=== PATIENT | female | born 1970 | race Caucasian/White ===

== ENCOUNTER 2021-05-22 12:35 | Emergency (ER) | payer SELFPAY ==
[~2021-05-22] VITALS: Ht 170 cm; Wt 72.5 kg
--- NOTE | 2021-05-22 13:18 | ED Headache ---
General Stated Complaint: COUGH/DIZZINESS/HEADACHE Source: patient Exam Limitations: no limitations History of Present Illness Date Seen by Provider: May 22, 2021 Time Seen by Provider: 12:55 Initial Comments Patient is a 51-year-old female who presents to the emergency department today with a chief complaint of headache, onset about 2 weeks ago. She complains of intermittent dizzy spells, some cough and a little shortness of breath. Patient is not Covid vaccinated. Patient has been taking her blood pressure at home and states the highest she has measured is 130 systolic. She states that she takes [id number] "natural vitamins" for blood pressure. She discontinued prescription BP meds several years ago when she lost her insurance. She does smoke cigarettes. She denies chest pain. She denies Covid contacts. Timing/Duration: 1 week, increasing Severity/Quality: moderate Location: frontal Prior Headaches/Recent Trauma: occasional headaches Associated Symptoms: denies symptoms Allergies and Home Medications Allergies Coded Allergies: piperacillin (Verified Allergy, Unknown, 05/22/21) tazobactam (Verified Allergy, Unknown, 05/22/21) Home Medications Lisinopril 10 Mg Tablet, 10 MG PO DAILY Prescribed by: MART RM on 05/22/21 1450 Patient Home Medication List Home Medication List Reviewed: Yes Review of Systems Review of Systems Constitutional: see HPI Respiratory: cough, short of breath (chronic) Cardiovascular: no symptoms reported Gastrointestinal: loss of appetite, nausea Genitourinary: no symptoms reported Skin: no symptoms reported Psychiatric/Neurological: Headache, Other (dizziness) All Other Systems Reviewed Negative Unless Noted: Yes Physical Exam Vital Signs Vital Signs - First Documented 05/22/21 12:57 Temp 36.7 Pulse 122 Resp 18 B/P (MAP) 202/132 (155) Pulse Ox 97 O2 Delivery Room Air Capillary Refill : Height, Weight, BMI Height: '" Weight: lbs. oz. kg; BMI Method: General Appearance: WD/WN, no apparent distress HEENT: PERRL/EOMI, normal ENT inspection, pharynx normal Neck: full range of motion Cardiovascular: regular rate, rhythm Respiratory: lungs clear, normal breath sounds, no respiratory distress, no accessory muscle use Gastrointestinal: non tender, soft Extremities: normal range of motion, non-tender, normal inspection, no pedal edema, no calf tenderness Psychiatric: alert, oriented x 3 Crainal Nerves: normal hearing, normal speech, PERRL Coordination/Gait: normal gait Motor/Sensory: no motor deficit, no sensory deficit Skin: normal color, warm/dry Progress/Results/Core Measures Results/Orders Lab Results Laboratory Tests Test 05/22/21 13:10 Range/Units White Blood Count 8.6 4.3-11.0 10^3/uL Red Blood Count 4.14 3.80-5.11 10^6/uL Hemoglobin 14.8 11.5-16.0 g/dL Hematocrit 42 35-52 % Mean Corpuscular Volume 102 H 80-99 fL Mean Corpuscular Hemoglobin 36 H 25-34 pg Mean Corpuscular Hemoglobin Concent 35 32-36 g/dL Red Cell Distribution Width 13.6 10.0-14.5 % Platelet Count 167 130-400 10^3/uL Mean Platelet Volume 11.1 9.0-12.2 fL Immature Granulocyte % (Auto) 0 % Neutrophils (%) (Auto) 50 42-75 % Lymphocytes (%) (Auto) 37 12-44 % Monocytes (%) (Auto) 8 0-12 % Eosinophils (%) (Auto) 3 0-10 % Basophils (%) (Auto) 1 0-10 % Neutrophils # (Auto) 4.3 1.8-7.8 10^3/uL Lymphocytes # (Auto) 3.2 1.0-4.0 10^3/uL Monocytes # (Auto) 0.7 0.0-1.0 10^3/uL Eosinophils # (Auto) 0.3 0.0-0.3 10^3/uL Basophils # (Auto) 0.1 0.0-0.1 10^3/uL Immature Granulocyte # (Auto) 0.0 0.0-0.1 10^3/uL Sodium Level 136 135-145 MMOL/L Potassium Level 3.7 3.6-5.0 MMOL/L Chloride Level 104 98-107 MMOL/L Carbon Dioxide Level 23 21-32 MMOL/L Anion Gap 9 5-14 MMOL/L Blood Urea Nitrogen 12 7-18 MG/DL Creatinine 0.79 0.60-1.30 MG/DL Estimat Glomerular Filtration Rate 77 BUN/Creatinine Ratio 15 Glucose Level 116 H 70-105 MG/DL Calcium Level 8.8 8.5-10.1 MG/DL SARS-CoV-2 RNA (RT-PCR) Not Detected Not Detecte My Orders Orders - MART RM MD Ed Iv/Invasive Line Start (05/22/21 13:12) Cbc With Automated Diff (05/22/21 13:12) Basic Metabolic Panel (05/22/21 13:12) Ekg Tracing (05/22/21 13:12) Chest 1 View, Ap/Pa Only (05/22/21 13:12) Ct Head Wo (05/22/21 13:12) Covid 19 Inhouse Test (05/22/21 13:18) Vital Signs/I&O 05/22/21 05/22/21 12:57 15:09 Temp 36.7 36.7 Pulse 122 76 Resp 18 16 B/P (MAP) 202/132 (155) 124/89 (155) Pulse Ox 97 94 O2 Delivery Room Air Room Air Progress Progress Note : Time: 14:50 Progress Note Reevaluated patient, systolic blood pressure is down to 130. Patient is comfortable and in no acute distress. No headache currently. Work-up has been reviewed and is unremarkable. CT brain is negative for any intracranial pathology. Covid test is negative. Renal function is normal. Patient states that about 8 years ago when she was diagnosed with hypertension she was on lisinopril and clonidine. She states before she quit going to doctor she was on 40 mg daily. I advised the patient today we will start her back on 10 mg at a low dose and have her follow-up with [facility]. She is comfortable with this plan of care. All questions have been sought and answere d. Patient is stable for discharge. Initial ECG Impression Date: May 22, 2021 Initial ECG Impression Time: 13:20 Initial ECG Rate: 85 Initial ECG Rhythm: Normal Sinus Initial ECG Intervals: Normal Initial ECG Impression: Normal Diagnostic Imaging Diagonstic Imaging: Xray, CT Plain Films/CT/US/NM/MRI: chest, head Comments [facility] [place] NAME: [facility] REC#: [id number] PT STATUS: REG ER : 1970 PHYSICIAN: MART RM MD ADMIT DATE: 05/22/21/ER Draft Date of Exam:05/22/21 CT HEAD WO PROCEDURE: CT head without contrast. TECHNIQUE: Multiple contiguous axial images were obtained through the brain without the use of intravenous contrast. Auto Exposure Controls were utilized during the CT exam to meet ALARA standards for radiation dose reduction. INDICATION: Headache and elevated blood pressure. No prior studies are available for comparison. Ventricles and sulci are within normal limits. No sulcal effacement or midline shift is identified. No acute intra-axial or extra-axial hemorrhage is detected. There is an area of low density in the left frontal lobe white matter adjacent to frontal horn, perhaps owing to microvascular ischemia. Cisterns are patent. Paranasal sinuses are clear. IMPRESSION: Chronic changes. No acute intracranial process is identified. Dictated on workstation # [id number] Dict: 05/22/21 1417 Trans: 05/22/21 142 CVB [id number] Interpreted by: KENDRICK JOHNSTON MD Electronically signed by: [facility] [place] NAME: [facility] REC#: [id number] PT STATUS: REG ER : 1970 PHYSICIAN: MART RM MD ADMIT DATE: 05/22/21/ER Draft Date of Exam:05/22/21 CHEST 1 VIEW, AP/PA ONLY EXAMINATION: Chest 1 view HISTORY: Shortness of breath and cough. COMPARISON: None available. FINDINGS: The lungs are clear without edema or pneumonia. No pleural effusion or pneumothorax. Heart size is normal. IMPRESSION: 1. Clear lungs. Dictated on workstation # [id number] Dict: 05/22/21 141 Trans: 05/22/21 141 CVB [id number] Interpreted by: JOSE LUIS AMARO MD Electronically signed by: Departure Impression Primary Impression: Headache Qualified Codes: R51.9 - Headache, unspecified Disposition: 01 HOME, SELF-CARE Condition: Stable Departure-Patient Inst. Decision time for Depature: 14:49 Referrals: [facility] [place] Patient Instructions: High Blood Pressure ED Scripts Lisinopril (Lisinopril) 10 Mg Tablet 10 MG PO DAILY for 30 Days, #30 TAB Prov: MART RM MD 05/22/21 MART RM MD May 22, 2021 13:17
[2021-05-22 13:22] LABS: BASOPHILS # (AUTO) 0.1 10^3/uL (0.0-0.1); BASOPHILS % (AUTO) 1 % (0-10); EOSINOPHILS # (AUTO) 0.3 10^3/uL (0.0-0.3); EOSINOPHILS % (AUTO) 3 % (0-10); HEMATOCRIT 42 % (35-52); HEMOGLOBIN 14.8 g/dL (11.5-16.0); LYMPHOCYTES # (AUTO) 3.2 10^3/uL (1.0-4.0); LYMPHOCYTES % (AUTO) 37 % (12-44); MEAN CORPUSCULAR HEMOGLOBIN 36 pg (25-34); MEAN CORPUSCULAR HGB CONC 35 g/dL (32-36); MEAN CORPUSCULAR VOLUME 102 fL (80-99); MEAN PLATELET VOLUME 11.1 fL (9.0-12.2); MONOCYTES # (AUTO) 0.7 10^3/uL (0.0-1.0); MONOCYTES % (AUTO) 8 % (0-12); NEUTROPHILS # (AUTO) 4.3 10^3/uL (1.8-7.8); NEUTROPHILS % (AUTO) 50 % (42-75); PLATELET COUNT 167 10^3/uL (130-400); WHITE BLOOD COUNT 8.6 10^3/uL (4.3-11.0)
[2021-05-22 13:36] LABS: CALCIUM 8.8 MG/DL (8.5-10.1); CREATININE SERUM 0.79 MG/DL (0.60-1.30); POTASSIUM 3.7 MMOL/L (3.6-5.0)
--- NOTE | 2021-05-22 14:15 | Diagnostic Imaging Report ---
EXAMINATION: Chest 1 view HISTORY: Shortness of breath and cough. COMPARISON: None available. FINDINGS: The lungs are clear without edema or pneumonia. No pleural effusion or pneumothorax. Heart size is normal. IMPRESSION: 1. Clear lungs. Dictated by: Dictated on workstation # [id number]
--- NOTE | 2021-05-22 14:20 | Diagnostic Imaging Report ---
PROCEDURE: CT head without contrast. TECHNIQUE: Multiple contiguous axial images were obtained through the brain without the use of intravenous contrast. Auto Exposure Controls were utilized during the CT exam to meet ALARA standards for radiation dose reduction. INDICATION: Headache and elevated blood pressure. No prior studies are available for comparison. Ventricles and sulci are within normal limits. No sulcal effacement or midline shift is identified. No acute intra-axial or extra-axial hemorrhage is detected. There is an area of low density in the left frontal lobe white matter adjacent to frontal horn, perhaps owing to microvascular ischemia. Cisterns are patent. Paranasal sinuses are clear. IMPRESSION: Chronic changes. No acute intracranial process is identified. Dictated by: Dictated on workstation # [id number]
[2021-05-22] MEDS ORDERED: LISI10TA25 PO (14:50)
[2021-05-22 15:09] VITALS: BP 124/89
== END 2021-05-22 15:09 | disposition home or self-care (01) ==
LOC: ER 12:40
DX: R51.9 Headache, unspecified (principal); Z20.822 Contact with and (suspected) exposure to COVID-19
CPT/HCPCS: 36415; 70450; 71045; 80048; 85025; 87636; 93005